=== PATIENT | male | born 1975 | race Caucasian/White ===

== ENCOUNTER 2017-06-26 04:34 | Emergency (ER) | payer MEDICAID ==
[2017-06-26 04:56] VITALS: BP 178/101
[2017-06-26] MEDS ORDERED: Acetaminophen/oxyCODONE 325-10 MG Tab PO SCH (05:15)
--- NOTE | 2017-06-26 08:46 | CT ---
DATE OF SERVICE: 06/26/17 CLINICAL DATA: Possible renal calculi. UNENHANCED ABDOMEN AND PELVIC CT: Multislice acquisition through the abdomen and pelvis without IV or oral contrast was performed. The lung bases are clear. The liver is normal size. There is a 1.5 cm oval shaped fluid density lesion within the left lobe of the liver lateral segment, most likely representing a hepatic cyst. No other focal hepatic lesions. The gallbladder appears normal. The spleen appears normal. The pancreas appears normal. The right and left adrenals appear normal. The right kidney is abnormal. There is diffuse swelling of the right kidney compared to the left and there is mild perinephric fat stranding. There is mild hydronephrosis and hydroureter on the right down to the ureterovesical junction. There is a subtle focus of increased density within the distal ureter , suspicious for a distal ureteral calculi. The left kidney and collecting system appears normal. There is a small amount of fluid within the bladder. It appears grossly normal. No evidence of bladder calculi. The appendix is not dilated. No evidence of appendicitis. No free air. No free fluid. No dilated loops of bowel. No adenopathy. No aortic aneurysm. There is small umbilical hernia containing fat. IMPRESSION: Swelling of right kidney with mild perinephric fat stranding. There is also mild hydronephrosis and hydroureter on the right, down to the ureterovesical junction. There is a small hyperdense focus in the distal ureter , which could be a small distal ureteral calculi. Other causes for obstruction should be considered. Urologic consultation is recommended. [id number] MTDD
--- NOTE | 2017-06-26 19:02 | EDM.PDOC ---
ED HPI GENERAL MEDICAL PROBLEM - General Chief Complaint: General Stated Complaint: POSSIBLE KIDNEY STONE Time Seen by Provider: 06/26/17 04:50 Source of Information: Reports: Patient History Limitations: Reports: No Limitations - History of Present Illness INITIAL COMMENTS - FREE TEXT/NARRATIVE: This is a 42yo M who woke up at around 3am with severe right flank pain that radiates to the groin area. Patient has had this in the past with kidney stones and worked up by Urology and was told it was Renal granules. Patient states the pain has fluctuated and he has urinated blood the past few times. Denies any fever or chills. Onset Date: 06/26/17 Onset Time: 03:30 Duration: Hour(s):, Colic, Constant Location: Reports: Back, Radiates to (groin) Quality: Reports: Ache, Same as Previous Episode, Sharp Severity: Moderate Improves with: Reports: None Worsens with: Reports: None Associated Symptoms: Reports: No Other Symptoms Right Flank Pain Score (Numeric/FACES): 7 - Related Data Allergies Allergy/AdvReac Type Severity Reaction Status Date / Time No Known Allergies Allergy Verified 06/26/17 04:50 Home Meds: Home Meds Multivitamins [Childrens Chewable Vitamin] 1 tab PO DAILY 11/20/15 [History] Aspirin 81 mg PO DAILY 06/26/17 [History] Lisinopril [Lisinopril] 2.5 mg PO DAILY 06/26/17 [History] Metoprolol Succinate [Metoprolol Succinate] 25 mg PO DAILY 06/26/17 [History] Pantoprazole Sodium [Pantoprazole Sodium] 40 mg PO DAILY 06/26/17 [History] atorvaSTATin Calcium [Atorvastatin Calcium] 40 mg PO DAILY 06/26/17 [History] Past Medical History HEENT History: Reports: Impaired Vision Cardiovascular History: Reports: High Cholesterol, Hypertension Gastrointestinal History: Reports: GERD Genitourinary History: Reports: Renal Calculus - Infectious Disease History Infectious Disease History: Reports: Chicken Pox Social & Family History - Family History Family Medical History: Noncontributory - Tobacco Use Smoking Status *Q: Former Smoker Used Tobacco, but Quit: Yes Month Tobacco Last Used: 2013 - Caffeine Use Caffeine Use: Reports: Coffee, Soda - Recreational Drug Use Recreational Drug Use: No ED ROS GENERAL - Review of Systems Review Of Systems: ROS reveals no pertinent complaints other than HPI. ED EXAM, GENERAL - Physical Exam Exam: See Below Exam Limited By: No Limitations General Appearance: Alert, WD/WN, Moderate Distress Nose: Normal Inspection Throat/Mouth: Normal Inspection Head: Atraumatic, Normocephalic Neck: Normal Inspection Respiratory/Chest: No Respiratory Distress, No Accessory Muscle Use Cardiovascular: Normal Peripheral Pulses Back Exam: CVA Tenderness (R) Neurological: Alert, Oriented Psychiatric: Normal Affect, Normal Mood Skin Exam: Warm, Dry, Intact Course - Vital Signs Last Recorded V/S: Last Vital Signs Temp 35.5 C 06/26/17 04:55 Pulse 64 06/26/17 04:55 Resp 20 06/26/17 04:55 BP 178/101 H 06/26/17 04:55 Pulse Ox 100 06/26/17 04:55 - Orders/Labs/Meds Labs: Laboratory Tests 06/26/17 Range/Units 04:47 Urine Color Red Urine Appearance Cloudy (CLEAR) Urine pH 6.5 (5.0-8.0) Ur Specific [place] >= 1.030 (1.003-1.030) Urine Protein 100 H (NEGATIVE) mg/dL Urine Glucose (UA) Negative (NEGATIVE) mg/dL Urine Ketones Negative (NEGATIVE) mg/dL Urine Occult Blood Large H (NEGATIVE) Urine Nitrite Negative (NEGATIVE) Urine Bilirubin Negative (NEGATIVE) Urine Urobilinogen 1.0 (0.2-1.0) E.U./dL Ur Leukocyte Esterase Negative (NEGATIVE) Urine RBC Packed H /HPF Urine WBC 0-5 H /HPF Ur Squamous Epith Cells Rare /HPF Urine Bacteria Not seen /HPF Meds: Medications Discontinued Medications Generic Name Dose Route Start Last Admin Trade Name Wilbertq PRN Reason Stop Dose Admin Oxycodone/Acetaminophen 1 tab 06/26/17 05:15 06/26/17 05:15 Percocet 325-10 Mg PO 1 tab STAT CHANO Administration Departure - Departure Time of Disposition: 05:30 Disposition: Home, Self-Care 01 Condition: Good Clinical Impression: Renal calculus, right - Discharge Information Instructions: Acetaminophen; Oxycodone capsules, Tamsulosin capsules, Ciprofloxacin tablets Referrals: PCP,None [Primary Care Provider] - Forms: ED Department Discharge Additional Instructions: optical effects line up person prescribed medications at regular pharmacy this morning and take as directed. FLOMAX (TAMSULOSIN): 1 capsule by mouth daily for 10 days. CIPROFLOXACIN (ANTIBIOTIC):1 tablet by mouth every 12 hours for 14 days . PERCOCET (OXYCODONE/ACETAMINOPHEN): 1tablet by mouth every 6-8 hours as needed for pain. Drink plenty of water. You may need to take a stool softener while taking the pain medication, as it can cause constipation. Should your symptoms worsen or not resolve, follow up in clinic with regular provider or ER for further workup and Urological referral. Call with any questions.
== END 2017-06-26 05:35 | disposition home or self-care (01) ==
LOC: LB.ED 04:34
DX: N13.2 Hydronephrosis with renal and ureteral calculous obstruction (principal); K21.9 Gastro-esophageal reflux disease without esophagitis; I10 Essential (primary) hypertension; E78.00 Pure hypercholesterolemia, unspecified; Z87.891 Personal history of nicotine dependence; Z79.82 Long term (current) use of aspirin; Z79.899 Other long term (current) drug therapy
CPT/HCPCS: 74176; 81001; 99284; A9270

== ENCOUNTER 2018-10-29 06:07 | Emergency (ER) | payer MEDICAID ==
[2018-10-29 06:20] VITALS: BP 144/90
[2018-10-29] MEDS: Albuterol 0.083% 2.5 MG/3 ML Neb Soln NEB ONE (06:36)
--- NOTE | 2018-10-29 06:40 | EDM.PDOC ---
ED HPI GENERAL MEDICAL PROBLEM - General Chief Complaint: Respiratory Problem Stated Complaint: COUGH/LEFT RIB PAIN Time Seen by Provider: 10/29/18 06:30 Source of Information: Reports: Patient History Limitations: Reports: No Limitations - History of Present Illness INITIAL COMMENTS - FREE TEXT/NARRATIVE: This patient presents to the ED for evaluation of a cough. He states he has been sick for the past week with a cough but it started out with cold symptoms including a fever. Afebrile for the past 6 days but has continued to cough. He states the cough is worse at night and earlier this morning he states he " pulled a muscle" in his chest because he was coughing so hard. Shortly after that he started coughing and "something popped" in his chest. He is complaining of left lateral chest pain. He denies fever, nausea, vomiting, diarrhea. NOTE: Patient states he does not have any health problems although he is on a medication regime for hypertension. When questioned about this, the patient states that the medications were started as a precaution because of his family history of HTN. Left Thoracic Pain Score (Numeric/FACES): 5 - Related Data Allergies Allergy/AdvReac Type Severity Reaction Status Date / Time No Known Allergies Allergy Verified 10/29/18 06:25 Home Meds: Home Meds Multivitamins [Childrens Chewable Vitamin] 1 tab PO DAILY 11/20/15 [History] Aspirin 81 mg PO DAILY 06/26/17 [History] Lisinopril 2.5 mg PO DAILY 06/26/17 [History] Metoprolol Succinate 25 mg PO DAILY 06/26/17 [History] atorvaSTATin Calcium [Atorvastatin Calcium] 40 mg PO DAILY 06/26/17 [History] Past Medical History HEENT History: Reports: Impaired Vision Cardiovascular History: Reports: High Cholesterol, Hypertension Gastrointestinal History: Reports: GERD Genitourinary History: Reports: Renal Calculus - Infectious Disease History Infectious Disease History: Reports: Chicken Pox Social & Family History - Family History Family Medical History: Noncontributory - Caffeine Use Caffeine Use: Reports: Coffee, Soda ED ROS GENERAL - Review of Systems Review Of Systems: See Below Constitutional: Denies: Fever, Chills HEENT: Reports: No Symptoms Respiratory: Reports: Cough. Denies: Shortness of Breath Cardiovascular: Denies: Chest Pain, Dyspnea on Exertion GI/Abdominal: Denies: Constipation, Nausea, Vomiting Musculoskeletal: Reports: No Symptoms Skin: Reports: No Symptoms Neurological: Reports: No Symptoms ED EXAM, GENERAL - Physical Exam Exam: See Below Exam Limited By: No Limitations General Appearance: Alert, WD/WN, No Apparent Distress Eye Exam: Bilateral Eye: PERRL Ears: Normal External Exam Nose: Normal Inspection Throat/Mouth: Normal Inspection, Normal Oropharynx, No Airway Compromise Head: Atraumatic, Normocephalic Neck: Normal Inspection, Supple, Non-Tender, Full Range of Motion Respiratory/Chest: No Respiratory Distress, Wheezing (occasional expiratory wheeze). No: Decreased Breath Sounds Cardiovascular: Regular Rate, Rhythm Extremities: Normal Inspection, Normal Range of Motion Neurological: Alert, Oriented Psychiatric: Normal Affect Skin Exam: Warm, Dry Course - Vital Signs Last Recorded V/S: Last Vital Signs Temp 35.8 C 10/29/18 06:19 Pulse 78 10/29/18 06:19 Resp 18 10/29/18 06:19 BP 144/90 H 10/29/18 06:19 Pulse Ox 96 10/29/18 06:19 - Orders/Labs/Meds Orders: Active Orders 24 hr Category Date Time Status RT Aerosol Therapy [RC] ASDIRECTED Care 10/29/18 06:35 Active CXR [Chest 2V] [CR] Stat Exams 10/29/18 06:28 Ordered Meds: Medications Discontinued Medications Generic Name Dose Route Start Last Admin Trade Name Liam PRN Reason Stop Dose Admin Albuterol 2.5 mg 10/29/18 06:34 10/29/18 06:36 Proventil Neb Soln NEB 10/29/18 06:35 2.5 mg ONETIME ONE Administration Ketorolac Tromethamine 60 mg 10/29/18 06:46 10/29/18 06:50 Toradol IM 10/29/18 06:47 60 mg ONETIME ONE Administration - Re-Assessments/Exams Free Text/Narrative Re-Assessment/Exam: This patient presents for evaluation cough and chest wall pain. Signs and symptoms are most consistent with chest wall pain of a musculoskeletal source. A broad differential was considered including chest wall injury, rib fracture or contusion, pleurisy, pneumothorax, shingles, pneumonia or other intra- pulmonary process, PE, cardiac causes, referred pain etc. X-ray shows no acute findings. He did feel the albuterol was helpful so he will be started on this at home. No other sources for this reproducible pain are evident based on exam, history or imaging. Supportive outpatient management is indicated with Rest, NSAID pain medication treatment was discussed with the patient. Close follow-up with patient's primary care physician per discharge precautions. Chest wall pain discharge instructions given for home. 10/29/18 07:12 Departure - Departure Time of Disposition: 07:15 Disposition: DC/Tfer to SNF 03 Condition: Good Clinical Impression: Upper respiratory infection, Costochondritis, acute - Discharge Information *PRESCRIPTION DRUG MONITORING PROGRAM REVIEWED*: Not Applicable *COPY OF PRESCRIPTION DRUG MONITORING REPORT IN PATIENT SARA: Not Applicable Instructions: Costochondritis, [id number], Cough, Adult, [id number], Chest Wall Pain, [id number] Forms: ED Department Discharge Additional Instructions: Take Albuterol every 4 hours as needed for cough. take Toradol tab every 6 hours for 3 days - My Orders Last 24 Hours: My Active Orders 10/29/18 06:28 CXR [Chest 2V] [CR] Stat 10/29/18 06:35 RT Aerosol Therapy [RC] ASDIRECTED - Assessment/Plan Last 24 Hours: My Active Orders 10/29/18 06:28 CXR [Chest 2V] [CR] Stat 10/29/18 06:35 RT Aerosol Therapy [RC] ASDIRECTED
[2018-10-29] MEDS: Ketorolac 60 MG/2 ML SDV IM ONE (06:50)
--- NOTE | 2018-10-29 10:26 | CR ---
DATE OF SERVICE: 10/29/18 CLINICAL DATA: Cough/Rib Pain PA AND LATERAL CHEST: No priors. The patient has taken a poor inspiration. There is breathing motion artifact on the lateral view. The heart size is normal. The lungs appear clear. No pneumothorax. No pleural effusions. No evidence of acute intrathoracic disease. [id number] MTDD
== END 2018-10-29 07:09 | disposition home or self-care (01) ==
LOC: LB.ED 06:07
DX: M94.0 Chondrocostal junction syndrome [Tietze] (principal); E78.00 Pure hypercholesterolemia, unspecified; I10 Essential (primary) hypertension; J06.9 Acute upper respiratory infection, unspecified; Z79.82 Long term (current) use of aspirin; Z79.899 Other long term (current) drug therapy
CPT/HCPCS: 71046; 96372; 99283-25; J1885

== ENCOUNTER 2024-01-12 10:06 | Emergency (ER) | payer MEDICAID ==
[2024-01-12 10:35] LABS: BASOPHILS ABSOLUTE AUTO 0.02 K/uL (0.02-0.10); BASOPHILS PERCENT AUTO 0.2 % (0.0-0.5); EOSINOPHILS ABSOLUTE AUTO 0.09 K/uL (0.04-0.40); EOSINOPHILS PERCENT AUTO 1.1 % (1.0-5.0); HEMATOCRIT 41.9 % (40.0-54.0); HEMOGLOBIN 14.1 g/dL (13.0-18.0); LYMPHOCYTES ABSOLUTE AUTO 1.35 K/uL (1.50-4.00); LYMPHOCYTES PERCENT AUTO 16.2 % (20.0-40.0); MEAN CORPUSCULAR HEMOGLOBIN 28.9 pg (27.0-32.0); MEAN CORPUSCULAR HGB CONC 33.7 g/dL (31.0-35.0); MEAN CORPUSCULAR VOLUME 86 fL (76-96); MEAN PLATELET VOLUME 8.7 fL (6.0-10.0); MONOCYTES ABSOLUTE AUTO 0.81 K/uL (0.20-0.80); MONOCYTES PERCENT AUTO 9.7 % (3.0-10.0); NEUTROPHILS ABSOLUTE AUTO 6.04 K/uL (2.00-7.50); NEUTROPHILS PERCENT AUTO 72.8 % (45.0-70.0); PLATELET COUNT,PLT 148 K/uL (150-400); RED BLOOD CELL COUNT 4.88 M/uL (4.50-6.50); RED CELL DISTRIBUTION WIDTH 13.1 % (11.0-16.0); WHITE BLOOD CELL COUNT,WBC 8.3 K/uL (4.0-11.0)
[2024-01-12 10:37] LABS: APPEARANCE,URINE CLEAR (CLEAR); BILIRUBIN,URINE NEGATIVE (NEGATIVE); COLOR,URINE YELLOW; GLUCOSE,URINE NEGATIVE (NEGATIVE); KETONES,URINE NEGATIVE (NEGATIVE); LEUKOCYTE ESTERASE,URINE NEGATIVE (NEGATIVE); NITRITE,URINE NEGATIVE (NEGATIVE); OCCULT BLOOD,URINE NEGATIVE (NEGATIVE); PROTEIN,URINE NEGATIVE (NEGATIVE); UROBILINOGEN,URINE 0.2 E.U./dL (0.2-1.0)
[2024-01-12 10:56] LABS: LACTIC ACID 0.5 mmol/L (0.4-2.0)
[2024-01-12 11:02] LABS: ALBUMIN 3.6 g/dL (3.4-5.0); ANION GAP 9.4 mmol/L (5.0-15.0); BILIRUBIN TOTAL 1.1 mg/dL (0.0-1.0); BUN/CREATININE RATIO 13.1 (6-25); C-REACTIVE PROTEIN 57.3 mg/L (<5.0); CALCIUM 8.6 mg/dL (8.5-10.1); CARBON DIOXIDE,CO2 28.7 mmol/L (21.0-32.0); CREATININE 0.84 mg/dL (0.70-1.30); EST CRCL DRUG DOSING (CG) 127.14 mL/min; POTASSIUM,K 4.1 mmol/L (3.5-5.1); PROTEIN TOTAL,TP 7.3 g/dL (6.4-8.2)
[2024-01-12 11:35] LABS: SEDIMENTATION RATE MANUAL 19 mm/hr (0-15)
[2024-01-12] MEDS: cefTRIAXone 1 GM Vial IM ONE (12:41)
[2024-01-12] MEDS: Lidocaine 1% 5 ML VIAL INJECT ONE (12:42)
[2024-01-12] MEDS: cefTRIAXone 1 GM Vial ONE (12:47)
[2024-01-12 13:09] VITALS: BP 140/86
[2024-01-12 13:11] VITALS: PULSE 78
[2024-01-12] MEDS: Sodium Chloride 0.9% 50 ML IV ONE (14:00)
[2024-01-12] MEDS: Iopamidol 612 MG/ML 100 ML Bottle IV SCH (14:00)
[2024-01-12] MEDS: Sodium Chloride 0.9% 10 ML Syringe FLUSH ONE (14:00)
== END 2024-01-12 12:59 | disposition home or self-care (01) ==
LOC: LB.ED 10:06
DX: I86.1 Scrotal varices (principal); I10 Essential (primary) hypertension; E78.00 Pure hypercholesterolemia, unspecified; Z79.82 Long term (current) use of aspirin; Z79.899 Other long term (current) drug therapy
CPT/HCPCS: 36415; 74177; 80053; 81003; 83605; 85025; 85651; 86140; 96372; 99283; 99284; J0696; J3490; Q9967